=== PATIENT | female | born 2000 | race Caucasian/White ===

== ENCOUNTER 2025-04-12 13:35 | Outpatient (AMB) | payer OTHER, SELFPAY ==
[2025-04-12 13:38] VITALS: BP 112/72; BMI 34.3
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
== END 2025-04-12 14:20 | disposition home or self-care (01) ==
LOC: HO.HSMS 13:36
PROVIDERS: PCP Nurse Practitioner Family; Visit Provider Psychiatry & Neurology Neurology
DX: R41.89 Other symptoms and signs involving cognitive functions and awareness (principal); R06.83 Snoring; G47.10 Hypersomnia, unspecified
CPT/HCPCS: 99204

== ENCOUNTER 2025-04-12 13:35 | Outpatient (REF) | payer OTHER, SELFPAY ==
[2025-04-12 17:38] LABS: MANUAL DIFF FLAG NO
[2025-04-12 17:56] LABS: Basophils Absolute Auto 0.1 X10*3/uL (0.0-0.2); Basophils Percent Auto 0.7 % (0-2); Eosinophils Absolute Auto 0.1 X10*3/uL (0.0-0.4); Eosinophils Percent Auto 0.8 % (0-4); Hematocrit 41.5 % (37.0-47.0); Hemoglobin 13.9 g/dl (12.0-16.0); Imm Gran Abs Auto 0.03 X10*3/uL (0.00-0.03); Imm Gran Pct Auto 0.3 % (0.0-0.4); Lymphocytes Absolute Auto 2.5 X10*3/uL (1.2-4.9); Lymphocytes Percent Auto 28.5 % (20-40); Mean Corpuscular HGB Conc 33.5 g/dl (31.0-35.0); Mean Corpuscular Hemoglobin 30.4 pg (27.0-33.0); Mean Corpuscular Volume 90.8 fL (80.0-98.0); Mean Platelet Volume 10.1 fL (9.4-12.3); Monocytes Absolute Auto 0.5 X10*3/uL (0.1-1.2); Monocytes Percent Auto 5.3 % (2-11); Neutrophils Absolute Auto 5.6 x10*3/uL (2.0-8.3); Neutrophils Percent Auto 64.4 % (45-73); Platelet Count 269 X10*3/uL (160-400); Red Blood Count 4.57 X10*6/uL (4.20-5.50); Red Cell Distribution Width 12.8 % (11.0-16.0); White Blood Count 8.7 X10*3/uL (4.8-10.8)
[2025-04-12 18:17] LABS: Alanine Aminotransferase 12 U/L (0-31); Albumin Level 4.8 g/dL (3.5-5.0); Alkaline Phosphatase 73 U/L (39-117); Anion Gap 14 (12-20); Aspartate Amino Transferase 28 U/L (5-31); Bilirubin Total 0.3 mg/dL (0.0-1.0); Blood Urea Nitrogen 11 mg/dL (9-16); Calcium 9.5 mg/dL (8.4-10.2); Carbon Dioxide 21 mmol/L (22-29); Chloride 109 mmol/L (96-108); Estimated Glomerular Filt Rate > 60; Glucose Random 86 mg/dL (60-115); Potassium 3.8 mmol/L (3.3-5.1); Sodium 140 mmol/L (135-145); Total Protein 7.8 g/dL (6.5-8.0)
[2025-04-12 18:24] LABS: Ferritin 61 ng/mL (10-122); TSH reflex Free T4 1.17 uIU/mL (0.32-4.0)
[2025-04-12 18:36] LABS: Folate 10.4 ng/mL (> or = 4.0); Vitamin B12 431 pg/mL (200-900)
[2025-04-12 18:50] LABS: Erythrocyte Sedimentation Rate 4 MM/HR (0-20)
== END 2025-04-12 13:36 | disposition home or self-care (01) ==
LOC: HO.HKASLDS 13:35
PROVIDERS: PCP Nurse Practitioner Family; Visit Provider Psychiatry & Neurology Neurology
DX: R06.83 Snoring (principal); F09 Unspecified mental disorder due to known physiological condition; G47.10 Hypersomnia, unspecified
CPT/HCPCS: 36415; 80053; 82607; 82728; 82746; 84443; 85025; 85652

== ENCOUNTER 2025-04-26 15:06 | Outpatient (REF) | payer OTHER, SELFPAY ==
--- NOTE | ~2025-04-26 | MR_ITS ---
CLINICAL HISTORY: F09 - Unspecified mental disorder due to known physiological condition MR Brain without gadolinium Comparison: None Findings: No restricted diffusion. No intra-axial mass or hemorrhage. No midline shift. No hydrocephalus. Vascular flow voids are intact. The orbits are normal. The sinuses and mastoid air cells are clear. No focal bone lesion. IMPRESSION: Unremarkable brain MRI. This document has been electronically signed by: Leland Peck MD on 04/28/2025 10:20:19
== END 2025-04-26 15:07 | disposition home or self-care (01) ==
LOC: HO.MRI 15:06
PROVIDERS: Visit Provider Psychiatry & Neurology Neurology
DX: R41.89 Other symptoms and signs involving cognitive functions and awareness (principal); F09 Unspecified mental disorder due to known physiological condition
CPT/HCPCS: 70551

== ENCOUNTER → 2025-04-26 15:17 | Outpatient (BNV) | payer OTHER, SELFPAY | PROVIDERS: Visit Provider Specialist | DX: F09 Unspecified mental disorder due to known physiological condition (principal) | CPT/HCPCS: 70551 ==

== ENCOUNTER → 2025-06-18 09:12 | Outpatient (REF) | payer OTHER, SELFPAY ==
--- OUTSIDE RECORDS SUMMARY | 2025-06-18 09:31 | XMS_ITS | Encounter Summary ---
Author Organization [facility] Address [address] [place] [address] Phone Care Team Providers Care Copier Technician Name Role Phone Unknown, Unknown Unavailable Unavailable Samantha Leong MD Primary Care Provider [phone] Antonia Salazar MD Unavailable [phone] Encounter Details Date Type Department Care Team (Late st Contact Info) Description 06/12/2025 Orders Only [facility] [address] [place] [address] Provider, MD Sukhj[address] [place] [address] Social History Tobacco Use Types Packs/Day Years Used Date Smoking Tobacco: Never Smokeless Tobacco: Never Alcohol Use Standard Drinks/Week Comments Not Currently 0 (1 standard drink = 0.6 oz pur e alcohol) 1-2/d Education Answer Date Recorded Are you interested in more education? Not on miryam e 03/26/2023 Are you concerned about learning? Not on file 03/26/2023 No 03/26/2023 No 03/26/2023 Digital Access Answer Date Recorded No 04/21/2023 No 04/21/2023 Reliable internet access at home? Not on file 04/21/2023 Device with a working camera? Not on file Intimate Partner Violence Answer Date R ecorded Denied Basic Needs Not on file 02/20/2025 In the past 12 months have y ou been in a relationship with a person who hurts, threatens, or tries to control you? No 02/20/2025 Worried food would run out Not on file 02/20 In the past 12 months have y ou been in a relationship with a person who hurts, threatens, or tries to control you? No 02/20/2025 Comments No Sex and Gender Information Value Date Recorded Sex Assigned at Female 10/26/2022 1:13 PM EST Legal Sex Female 4:00 PM EDT Gender Identity Female 10/26/2022 1:13 PM EST Sexual Orientation Straight 10/26/2022 1: 13 PM EST documented as of this encounter Plan of Treatment Upcoming Encounters Date Type Department Care Team (Late st Contact Info) Description 09/11/2025 1:00 PM EDT Telemedicine [facility] [address] [place] [address] Samantha Leong MD [address] [place] [address] [address] [place] [phone] [email or web address] 03/05/2026 4:00 PM EDT Office Visit [facility] [place] [address] [place] [address] Samantha Leong MD [address] [place] [address] [address] [place] [phone] [email or web address] documented as of this encounter Procedures Procedure Name Priority Date/Time Associated Diagnosis Comments OUTSIDE LAB Routine 06/12/2025 2:09 PM EDT documented in this encounter Results * Outside Lab (06/12/2025 2:09 PM EDT) us Historical Provider LAB BLOOD ORDERABLES Julia l Result documented in this encounter Visit Diagnoses Not on filedocumented in this encounter Additional Health Concerns Assessment Noted Time PHQ-9 Depression Total Score: 15 025 3:42 PM EDT PHQ-2 Depression Total Score: 1 02/21/20 25 3:42 PM EDT documented as of this encounter Care Teams Copier Technician Relationship Specialty Start Date End Date Samantha Leong MD [address] [place] [address] [email or web address] PCP - General Family Medicine 10/26/22 Unknown, Unknown, MD Dentist 11/18/20 Antonia Salazar MD [address] [place] [address] [email or web address] Insurance Assigned Provider 07/08/24 Sadaf Lomeli Psychiatrist Psychiatry 03/27/23 documented as of this encounter Additional Source Comments The information contained in this document represents components of the legal health record. It is not the complete legal health record.[facility]
== END ==
LOC: HO.SL 09:12
PROVIDERS: PCP Pediatrics Adolescent Medicine; Visit Provider Psychiatry & Neurology Neurology
DX: Z13.89 Encounter for screening for other disorder (principal)